=== PATIENT | female | born 1985 | race Caucasian/White ===

== ENCOUNTER 2018-03-11 22:36 | Emergency (ER) | payer OTHER ==
[2018-03-11 23:23] VITALS: TEMP 97.4; BMI 44.7
--- NOTE | 2018-03-12 00:34 | PDOC ---
History of Present Illness - General Chief Complaint: Back Pain Stated Complaint: BACK PAIN Time Seen by Provider: 03/12/18 00:28 - History of Present Illness Initial Comments: 03/12/18 00:34 32 yo F with h/o asthma, HTN, DM, anxiety, depression, who p/w chest pain, and SOB. Patient reports acute onset of worsening, pleuritic, inframmamry chest wall pain, radiating to BL back, and chest, beginning this evening while standing. Also complains of acute SOB, with no identifiable triggers. Pain aggravated with movement. Reports recent URI type illness, with 1 week of non productive cough, congestion, and rhinorrhea. Recently completed 4 day course of antibiotic (unknown) yesterday. Denies sick contacts, or recent travels. Reports 4 days of non bloody, non bilious emesis worse with PO intake. Denies OTC analgesia, or chest wall trauma. Patient denies orthopnea, PND, palpitations, leg swelling/pain, F,C, CP, hemoptysis, SOB, urinary complaints, abdominal pain, diarrhea, constipation, lightheadedness, weakness, sensory changes. PMHx: as noted above ROS: as noted SHx: Tobacco cessation x 1 year ago following 1 ppd x 2 years, Denies IVDA. FHx: No h/o sudden cardiac . Allergies:NKDA Past History - Past Medical History Allergies/Adverse Reactions: Allergies Allergy/AdvReac Type Severity Reaction Status Date / Time No Known Allergies Allergy Verified 03/11/18 23:17 Home Medications: Ambulatory Orders Insulin Regular [NOVOLIN R VIAL *IVPUSH / ER / ICU Only*] 28 units SQ TID Cardiac Disorders: No CVA: No COPD: No CHF: No DVT: No Diabetes: Yes (IDDM) HTN: Yes - Surgical History Cardiac Surgery: No Cholecystectomy: No Gastric Stapling: No GI Surgery: No - Suicide/Smoking/Psychosocial Hx Smoking History: Never smoked Substance Use Type: None Review of Systems - Review of Systems Comments:: 03/12/18 00:34 GENERAL/CONSTITUTIONAL: No fever or chills. No weakness. HEAD, EYES, EARS, NOSE AND THROAT: No change in vision. No ear pain or discharge. No sore throat. CARDIOVASCULAR + chest pain and shortness of breath RESPIRATORY: + cough. No wheezing, or hemoptysis. GASTROINTESTINAL:+ nausea and vomiting. No diarrhea or constipation. GENITOURINARY: No dysuria, frequency, or change in urination. MUSCULOSKELETAL: No joint or muscle swelling or pain. No neck or back pain. SKIN: No rash NEUROLOGIC: No headache, vertigo, loss of consciousness, or change in strength/ sensation. ENDOCRINE: No increased thirst. No abnormal weight change HEMATOLOGIC/LYMPHATIC: No anemia, easy bleeding, or history of blood clots. ALLERGIC/IMMUNOLOGIC: No hives or skin allergy. *Physical Exam - Vital Signs Last Vital Signs Temp Pulse Resp BP Pulse Ox 97.4 F L 80 20 158/108 H 99 03/11/18 23:20 03/11/18 23:20 03/11/18 23:20 03/11/18 23:20 03/11/18 23:20 - Physical Exam Comments: 03/12/18 00:34 GENERAL: Awake, alert, and fully oriented, in no acute distress HEAD: No signs of trauma, normocephalic, atraumatic EYES: PERRLA, EOMI, sclera anicteric, conjunctiva clear ENT: Hearing grossly normal, nares patent, oropharynx clear without exudates. Moist mucosa NECK: Normal ROM, supple, no lymphadenopathy, JVD, or masses LUNGS: No distress, speaks full sentences, clear to auscultation bilaterally HEART: Regular rate and rhythm, normal S1 and S2, no murmurs, rubs or gallops, peripheral pulses normal and equal bilaterally. CHEST: + Ant, and post chest wall ttp. No bony deformity. ABDOMEN: + Epigastria ttp. Soft, nontender, normoactive bowel sounds. No guarding, no rebound. No masses. Neg CVA ttp. EXTREMITIES : Normal inspection, Normal range of motion, no edema. No clubbing or cyanosis. SKIN: Warm, Dry, normal turgor, no rashes or lesions noted ED Treatment Course - LABORATORY CBC & Chemistry Diagram: 03/12/18 00:55 03/12/18 00:55 Medical Decision Making - Medical Decision Making 03/12/18 00:53 32 yo F with h/o asthma, HTN, DM, anxiety, depression, who p/w chest pain, and SOB. BP 158/18, vitals otherwise wnl. + BL ant and post chest wall ttp. Lungs CTA. Cardiac exam unremarkable. ACS/PR r/o. R/o PNA. PERC NEG PE. Low suspicion AAA, Ao dissection, pericarditis. Will consider gastritis, biliary disease, pancreatitis, costochondritis, anxiety related disorder. ED Course: CBC,CMP, Lipase, Cardiac Pr, HCG, Influenza CXR, EKG Zofran, Tylenol, NS 03/12/18 01:19 EKG: NSR with absent TRENA, STD. Normal interval duration and axis. 03/12/18 03:00 WBC: 10.9 Lipase: 472 Glu: 375 CMP: Unremarkable HCG: Neg 03/12/18 03:02 CXR: Unremarkable on intial preliminary read in ED. 03/12/18 03:22 CT AP W/CON 03/12/18 05:17 CT AP: Unremarkable Patient pain improved. Stable for d/c with return precautions. Advised to f/u with PMD. *DC/Admit/Observation/Transfer Diagnosis at time of Disposition: Back pain Qualifiers: Back pain location: thoracic back pain Chronicity: acute Back pain laterality: bilateral Qualified Code(s): M54.6 - Pain in thoracic spine Chest pain Qualifiers: Chest pain type: chest pain on breathing Qualified Code(s): R07.1 - Chest pain on breathing - Discharge Dispostion Condition at time of disposition: Stable Decision to Admit order: No - Referrals Referrals: Simon Shepard MD [Primary Care Provider] - - Patient Instructions Printed Discharge Instructions: DI for Thoracic Back Pain Additional Instructions: Please return to the emergency department with any new or worsening symptoms or concerns. Please follow up with your primary care physician within 72 hours. - Post Discharge Activity - Attestations Physician Attestion: 03/12/18 00:34 I attest to the information provided in this note.
[2018-03-12] MEDS ORDERED: ONDANSETRON 4 MG/2 ML VIAL IVPB ONE (00:43)
[2018-03-12] MEDS ORDERED: ALBUTEROL SO4 2.5/IPRATROPIUM 0.5 INH SOL 3 ML VIAL.NEB. NEB ONE ×2 (00:43→00:49)
[2018-03-12] MEDS ORDERED: ACETAMINOPHEN 1000 MG/100 ML VIAL (NON FORMULARY) IVPB ONE (00:43)
[2018-03-12] MEDS ORDERED: SODIUM CHLORIDE 1,000 ML IV STA (00:43)
[2018-03-12] MEDS ORDERED: ACETAMINOPHEN INJECTION 100 ML IVPB ONE (00:49)
[2018-03-12] MEDS ORDERED: ONDANSETRON 4 MG/2 ML VIAL ONE (00:49)
--- NOTE | 2018-03-12 01:46 | PDOC ---
Attending Attestation - HPI HPI: 03/12/18 03:16 The patient is a 32 year old female with a significant PMH of asthma, HTN, DM, anxiety, depression, who presents to the ED with chest pain, and SOB since earlier this evening. The patient reports that she had a sudden acute onset of chest pain that radiates to her back while she was standing up today. the patient also reports some associated shortness of breath with her chest pain. she states that her chest pain is worsened with movement. She reports recent URI type illness, with 1 week of non productive cough, congestion, and rhinorrhea. she states that she recently completed 4 day course of antibiotic ( unknown) yesterday. Denies sick contacts, or recent travels. Reports 4 days of non bloody, non bilious emesis worse with PO intake. Denies OTC analgesia, or chest wall trauma. the patient denies any other symptoms or complaints. Documentation prepared by Obie Tyler, acting as medical safety director for Leila Walton MD. <Obie Tyler - Last Filed: 03/12/18 03:16> - Resident Resident Name: Rafael Zurita - ED Attending Attestation I have performed the following: I have examined & evaluated the patient, The case was reviewed & discussed with the resident, I agree w/resident's findings & plan, Exceptions are as noted - Physicial Exam PE: 03/13/18 05:44 GENERAL: Awake, alert, and fully oriented, in no acute distress LUNGS: No distress, speaks full sentences, clear to auscultation bilaterally HEART: Regular rate and rhythm, normal S1 and S2, no murmurs, rubs or gallops, peripheral pulses normal and equal bilaterally. CHEST: + Ant, and post chest wall ttp. No bony deformity. ABDOMEN: + Epigastria ttp. Soft, No guarding, no rebound. No masses. Neg CVA ttp. EXTREMITIES : Normal inspection, Normal range of motion, no edema. SKIN: Warm, Dry, normal turgor, no rashes or lesions noted - Medical Decision Making 03/13/18 05:44 Laboratory Tests 03/12/18 03/12/18 03/12/18 00:55 00:55 00:55 WBC 10.9 H Hgb 9.7 L Hct 32.2 L Plt Count 363 BUN 14 Creatinine 1.1 Random Glucose 325 H* Creatine Kinase 63 Troponin I < 0.02 Lipase Urine HCG, Qual 03/12/18 03/12/18 01:00 02:28 WBC Hgb Hct Plt Count BUN Creatinine Random Glucose Creatine Kinase Troponin I Lipase 472 H Urine HCG, Qual Negative CT negative No bowel obstruction or inflammation. Negative for diverticulitis or colitis. Normal appendix. Small hiatal hernia. Normal left kidney and ureter. Scarring and atrophy of the right kidney. No acute abnormalities of the right kidney or urinary tract. No urinary tract obstruction. Normal urinary bladder. Normal liver. Normal spleen. Normal pancreas Normal adrenal glands. Contracted gallbladder. 1.8 cm right corpus luteum cyst. No fringe peritoneal air or free fluid. Osseous structures are intact Clinical Impression: abdominal pain, initial presentation <Leila Walton - Last Filed: 03/13/18 05:46>
[2018-03-12 01:54] LABS: BASO % 0.8 % (0-2.0); EOS % 4.6 % (0-4.5); HEMATOCRIT 32.2 % (32.4-45.2); HEMOGLOBIN 9.7 GM/dL (10.7-15.3); LYMPH % 34.6 % (8-40); MCH 20.7 pg (25.7-33.7); MCHC 30.1 g/dl (32.0-36.0); MEAN CELL VOLUME 68.8 fl (80-96); MEAN PLT VOLUME 7.4 fl (7.5-11.1); MONO % 4.2 % (3.8-10.2); NEUT % 55.8 % (42.8-82.8); PLATELET COUNT 363 K/MM3 (134-434); RBC 4.68 M/mm3 (3.60-5.2); WHITE BLOOD COUNT 10.9 K/mm3 (4.0-10.0)
[2018-03-12 02:54] LABS: ALBUMIN 3.2 g/dl (3.4-5.0); ALK PHOS 102 U/L (45-117); ANION GAP 8 MMOL/L (8-16); BILIRUBIN,TOTAL 0.2 mg/dL (0.2-1); BLOOD UREA NITROGEN 14 mg/dL (7-18); CALCIUM 8.9 mg/dL (8.5-10.1); CHLORIDE 102 mmol/L (98-107); CO2 27 mmol/L (21-32); CREATININE 1.1 mg/dL (0.55-1.3); SGOT/AST 15 U/L (15-37); SGPT/ALT 27 U/L (13-61); SODIUM 137 mmol/L (136-145)
[2018-03-12 03:13] LABS: GLUCOSE,RANDOM 325 mg/dL (74-106)
[2018-03-12] MEDS ORDERED: FAMOTIDINE 20 MG/50 ML IVPB 20 MG/50 ML MG IVPB ONE ×2 (03:16→03:59)
[2018-03-12] MEDS ORDERED: MAG HYDROX/AL HYDROX/SIMETH 30 ML UNIT-DOSE CUP PO ONE (03:16)
[2018-03-12] MEDS ORDERED: KETOROLAC TROMETHAMINE 30 MG/1 ML VIAL IVPUSH ONE (03:29)
[2018-03-12 03:58] LABS: ANISOCYTOSIS 2+; MACROCYTOSIS 1+; PLATELET ESTIMATE NORMAL
[2018-03-12] MEDS ORDERED: MAG HYDROX/AL HYDROX/SIMETH 30 ML UNIT-DOSE CUP ONE (03:59)
[2018-03-12] MEDS ORDERED: KETOROLAC TROMETHAMINE 30 MG/1 ML VIAL ONE (03:59)
[2018-03-12 06:14] VITALS: BP 135/76; PULSE 81
--- NOTE | 2018-03-12 10:46 | EKG ---
Test Reason : Blood Pressure : / mmHG Vent. Rate : 068 BPM Atrial Rate : 068 BPM P-R Int : 136 ms QRS Dur : 076 ms QT Int : 432 ms P-R-T Axes : 040 056 048 degrees QTc Int : 459 ms SINUS RHYTHM WITH MARKED SINUS ARRHYTHMIA OTHERWISE NORMAL ECG NO PREVIOUS ECGS AVAILABLE Confirmed by KHOI MELCHOR, SYBIL ([id number]) on 03/12/2018 10:46:41 AM Referred By: Confirmed By:SYBIL WESTFALL MD
== END 2018-03-12 06:13 | disposition home or self-care (01) ==
LOC: JER 22:36
DX: R07.89 Other chest pain (principal); M54.6 Pain in thoracic spine; I10 Essential (primary) hypertension; E10.9 Type 1 diabetes mellitus without complications; Z79.4 Long term (current) use of insulin; F41.9 Anxiety disorder, unspecified; F32.9 Major depressive disorder, single episode, unspecified
CPT/HCPCS: 36415; 71045-TC-FY; 74177-TC; 80053; 82550; 83690; 84484; 84703; 85025; 93005; 93010; 99282-25; J0131; J7030; J7620

== ENCOUNTER 2018-03-12 16:46 | Inpatient (IN) | payer OTHER ==
[2018-03-12] MEDS ORDERED: ONDANSETRON 4 MG/2 ML VIAL IVPUSH ONE ×2 (16:57→17:45)
--- NOTE | 2018-03-12 17:00 | PDOC ---
Rapid Medical Evaluation Chief Complaint: Pain, Acute Time Seen by Provider: 03/12/18 16:55 Medical Evaluation: Allergies Allergy/AdvReac Type Severity Reaction Status Date / Time No Known Allergies Allergy Verified 03/12/18 16:55 03/12/18 16:58 Pt c/o: rt back and ruq pain x 1 hour, + n/v, had ct yesterday (unable to completely visualize gallbladder) lipase 474, Pt on brief exam: rt cva, + ruq pain, tachy Pt ordered for: labs, lipase, ua, gallbladder u/s pt to proceed to the ED: Discharge Disposition - Diagnosis Abdominal pain - Referrals - Patient Instructions - Post Discharge Activity
--- NOTE | 2018-03-12 17:36 | PDOC ---
History of Present Illness - General History Source: Patient Exam Limitations: No Limitations - History of Present Illness Initial Comments: 03/12/18 17:53 The patient is a 32 year old female, with a significant past medical history of diabetes and HTN, who presents to the ED complaining of right mid back back for the past 24 hours, as well as nausea and vomit. She reports 4 episodes of emesis , nonbloody and nonbilious. She describes her pain is severe and constant, radiating from her back to her abdomen and chest. She notes that movement and deep breaths exacerbates her pain. She notes that she has been feeling short of breath due to the pain. She denies taking anything for the pain while at home. The patient was in the ED last night for the same pain, was given pain medication and a CT Scan abdomen/pelvis was done that was within normal limits except for a cyst on the right ovary. She was discharged after improvement of symptoms. The patient denies chest pain, headache and dizziness. Denies fever, chills, diarrhea or constipation. Denies dysuria, frequency, urgency and hematuria. LMP: 02/25/2018 Allergies: none Past surgical history: None repoted Social History: No alcohol, tobacco or drug use reported <Ernesto Hsieh - Last Filed: 03/12/18 18:46> <John Zarate - Last Filed: 03/12/18 23:14> - General Chief Complaint: Pain, Acute Stated Complaint: PAIN, ACUTE Time Seen by Provider: 03/12/18 16:55 Past History <Ernesto Hsieh - Last Filed: 03/12/18 18:46> - Past Medical History Cardiac Disorders: No CVA: No COPD: No CHF: No DVT: No Diabetes: Yes (IDDM) HTN: Yes - Surgical History Cardiac Surgery: No Cholecystectomy: No Gastric Stapling: No GI Surgery: No - Suicide/Smoking/Psychosocial Hx Smoking History: Unknown if ever smoked Substance Use Type: None <John Zarate - Last Filed: 03/12/18 23:14> - Past Medical History Allergies/Adverse Reactions: Allergies Allergy/AdvReac Type Severity Reaction Status Date / Time No Known Allergies Allergy Verified 03/12/18 16:55 Home Medications: Ambulatory Orders Insulin Glargine,Hum.rec.anlog [Katherine Ricks U-100] 28 unit SQ ASDIR Review of Systems - Review of Systems Able to Perform ROS?: Yes Comments:: 03/12/18 17:53 CONSTITUTIONAL: No fever, no chills, no fatigue EYES: No visual changes ENT: No ear pain, no sore throat CARDIOVASCULAR: No chest pain, no palpitations RESPIRATORY: (+) Shortness of breath. No cough GI: (+) Nausea, vomit. No constipation, no diarrhea GENITOURINARY: No dysuria, no frequency, no hematuria MUSKULOSKELETAL: (+) Right mid back pain. No joint pain, no myalgias SKIN: No rash NEURO: No headache <Ernesto Hsieh - Last Filed: 03/12/18 18:46> *Physical Exam - Vital Signs Last Vital Signs Temp Pulse Resp BP Pulse Ox 97.7 F 105 H 22 H 132/99 100 03/12/18 17:00 03/12/18 17:00 03/12/18 17:00 03/12/18 17:00 03/12/18 17:00 - Physical Exam Comments: 03/12/18 17:54 CONSTITUTIONAL: Well-appearing; (+) Morbidly Obese; in no apparent distress HEAD: Normocephalic; atraumatic EYES: PERRL; EOM intact ENMT: External appears normal; normal oropharynx NECK: Supple; non-tender; no cervical lymphadenopathy CARD: Normal S1, S2; no murmurs, rubs, or gallops RESP: Normal chest excursion with respiration; breath sounds clear and equal bilaterally; no wheezes, rhonchi, or rales ABD: (+) Epigastric tenderness, no rebound or guarding. Soft, non-distended; no palpable organomegaly, no palpable hernias BACK: (+) Right scapula tenderness. EXT: Normal ROM in all four extremities; non-tender to palpation; distal pulses intact SKIN: Warm, dry, no rash NEURO: No focal neurological deficiencies. <Ernesto Hsieh - Last Filed: 03/12/18 18:46> - Vital Signs Last Vital Signs Temp Pulse Resp BP Pulse Ox 97.7 F 105 H 22 H 132/99 100 03/12/18 17:00 03/12/18 17:00 03/12/18 17:00 03/12/18 17:00 03/12/18 17:00 <John Zarate - Last Filed: 03/12/18 23:14> ED Treatment Course - LABORATORY CBC & Chemistry Diagram: 03/12/18 17:47 03/12/18 17:47 - Medications Given in the ED: ED Medications Discontinued Medications Generic Name Dose Route Start Last Admin Trade Name Herman PRN Reason Stop Dose Admin Ketorolac Tromethamine 30 mg 03/12/18 17:45 03/12/18 17:51 Toradol Injection - IVPUSH 03/12/18 17:46 30 mg ONCE ONE Administration Ondansetron HCl 4 mg 03/12/18 16:57 03/12/18 17:51 Zofran Injection IVPUSH 03/12/18 16:58 4 mg ONCE ONE Administration Ondansetron HCl 4 mg 03/12/18 17:45 03/12/18 17:51 Zofran Injection IVPUSH 03/12/18 17:46 Not Given ONCE ONE <Ernesto Hsieh - Last Filed: 03/12/18 18:46> - LABORATORY CBC & Chemistry Diagram: 03/12/18 17:47 03/12/18 17:47 <John Zarate - Last Filed: 03/12/18 23:14> Medical Decision Making - Medical Decision Making 03/12/18 21:20 Patient is a morbidly obese 32-year-old female with history of insulin- dependent diabetes who presents with recurrent epigastric pain associated with nausea and several episodes of nonbloody nonbilious vomiting and right subscapular pain. In the ER, patient is awake and alert, in mild distress. Patient is afebrile. Repeat CBC is consistent with chronic iron deficiency anemia. CMP reveals significantly elevated lipase when compared to the one previously obtained. Right upper quadrant ultrasound shows fatty liver no evidence of cholelithiasis. D-dimer is negative and PE is highly unlikely. CT that and pelvis performed earlier shows no evidence of acute intra-abdominal pathology. Will hydrate, we'll administer antiemetics and pain meds as needed. Will place in observation for pancreatitis. <John Zarate - Last Filed: 03/12/18 23:14> *DC/Admit/Observation/Transfer - Attestations Scribe Attestion: 03/12/18 17:54 Documentation prepared by Ernesto Hsieh, acting as medical record consultant for John Zarate MD <Ernesto Hsieh - Last Filed: 03/12/18 18:46> - Discharge Dispostion Decision to Admit order: Yes - Attestations Physician Attestion: 03/12/18 21:19 The documentation was prepared by the scribe under my direct supervision. I have reviewed the documentation which correctly represents the findings, medical decision-making and critical action taken by me. <John Zarate - Last Filed: 03/12/18 23:14> Diagnosis at time of Disposition: Pancreatitis, acute Qualifiers: Pancreatitis type: unspecified pancreatitis type Acute pancreatitis complication: unspecified Qualified Code(s): K85.90 - Acute pancreatitis without necrosis or infection, unspecified - Discharge Dispostion Condition at time of disposition: Fair - Referrals Referrals: Simon Shepard MD [Primary Care Provider] - - Patient Instructions - Post Discharge Activity
[2018-03-12] MEDS ORDERED: SODIUM CHLORIDE 1,000 ML IV STA (17:45)
[2018-03-12] MEDS ORDERED: KETOROLAC TROMETHAMINE 30 MG/1 ML VIAL IVPUSH ONE (17:45)
[2018-03-12] MEDS ORDERED: ONDANSETRON 4 MG/2 ML VIAL ONE (17:52)
[2018-03-12] MEDS ORDERED: KETOROLAC TROMETHAMINE 30 MG/1 ML VIAL ONE (17:52)
[2018-03-12 18:03] LABS: BASO % 1.5 % (0-2.0); EOS % 5.1 % (0-4.5); HEMATOCRIT 32.4 % (32.4-45.2); HEMOGLOBIN 9.7 GM/dL (10.7-15.3); LYMPH % 24.9 % (8-40); MCH 20.5 pg (25.7-33.7); MCHC 29.9 g/dl (32.0-36.0); MEAN CELL VOLUME 68.5 fl (80-96); MEAN PLT VOLUME 7.3 fl (7.5-11.1); MONO % 4.3 % (3.8-10.2); NEUT % 64.2 % (42.8-82.8); PLATELET COUNT 354 K/MM3 (134-434); RBC 4.72 M/mm3 (3.60-5.2); RDW 17.9 % (11.6-15.6); WHITE BLOOD COUNT 9.9 K/mm3 (4.0-10.0)
[2018-03-12 18:27] LABS: ALBUMIN 2.9 g/dl (3.4-5.0); ALK PHOS 105 U/L (45-117); ANION GAP 3 MMOL/L (8-16); BILIRUBIN,TOTAL 0.2 mg/dL (0.2-1); BLOOD UREA NITROGEN 12 mg/dL (7-18); CALCIUM 8.8 mg/dL (8.5-10.1); CHLORIDE 106 mmol/L (98-107); CO2 25 mmol/L (21-32); CREATININE 0.9 mg/dL (0.55-1.3); GLUCOSE,RANDOM 249 mg/dL (74-106); LIPASE 1398 U/L (73-393); MAGNESIUM 1.7 mg/dL (1.8-2.4); POTASSIUM 4.2 mmol/L (3.5-5.1); SGOT/AST 12 U/L (15-37); SGPT/ALT 25 U/L (13-61); SODIUM 134 mmol/L (136-145); TOT PROT 6.7 g/dl (6.4-8.2)
[2018-03-12] MEDS ORDERED: LACTATED RINGERS SOLUTION 1,000 ML/1,000 ML INFUS.BAG IV STA (18:36)
[2018-03-12] MEDS ORDERED: MAGNESIUM SULF 50% (8.12 MEQ/2 ML-1 GM VIAL) IVPB ONE (18:42)
[2018-03-12] MEDS ORDERED: MAGNESIUM SULF 50% (8.12 MEQ/2 ML-1 GM VIAL) ONE (18:54)
[2018-03-12 20:45] LABS: URINE APPEARANCE CLEAR; URINE BILIRUBIN NEGATIVE (<2.0 mg/dL); URINE COLOR LTYELLOW; URINE GLUCOSE (UA) 3+ (NEGATIVE); URINE KETONE NEGATIVE (NEGATIVE); URINE LEUK ESTERASE 1+ (NEGATIVE); URINE NITRITE NEGATIVE (NEGATIVE); URINE PROTEIN NEGATIVE (NEGATIVE); URINE UROBILINOGEN NEGATIVE mg/dL (0.2-1.0)
[2018-03-12 20:53] LABS: EPI CELLS RARE /HPF (FEW); URINE MUCUS RARE
--- NOTE | 2018-03-12 23:20 | PN ---
Teaching Attending Note Name of Resident: Ying Khan ATTENDING PHYSICIAN STATEMENT I saw and evaluated the patient. Chart, data, imaging reviewed. I reviewed the resident's note and discussed the case with the resident. I agree with the resident's findings and plan as documented. SUBJECTIVE: 32 year old morbidly obese female, with a significant past medical history of DM , HTN c/o right sided back pain which radiates to right chest for the past 5 days. Associated with nausea and vomiting which is now resolved. No clear causative event. Slight improvement with IV toradol. Was seen in ER yesterday for same complaint. CT of abdomen showed only ruptured right ovarian cyst, and fatty liver. OBJECTIVE No Last Vital Signs Temp Pulse Resp BP Pulse Ox 97.7 F 105 H 22 H 132/99 100 03/12/18 17:00 03/12/18 17:00 03/12/18 17:00 03/12/18 17:00 03/12/18 17:00 gen- morbidly obese heent- atraumatic neck - supple cv -s1+s2+rrr back- right sided perispinal tenderness, diffuse spinal tenderness ext- - 5/5 motor in lower ext, neg babinski b/l, +patellar reflexes b/l, sensation in LE grossly intact b/l Abnormal Lab Results 03/12/18 03/12/18 03/12/18 17:47 17:47 20:00 Hgb 9.7 L MCV 68.5 L MCH 20.5 L MCHC 29.9 L RDW 17.9 H MPV 7.3 L Eosinophils % 5.1 H Sodium 134 L Anion Gap 3 L Random Glucose 249 H Magnesium 1.7 L AST 12 L Albumin 2.9 L Lipase 1398 H Urine Glucose (UA) 3+ H Ur Leukocyte Esterase 1+ H imaging reviewed- CT of abdomen/pelvis, hepatobiliary U/S ASSESSMENT AND PLAN: 32yo woman with right right sided perispinal back pain which is likely muscle spasms vs muscle strain. Pancreatitis structurally normal on CT and no hepatobiliary disease seen. Hypomagnesemia may cause muscle cramping and contribute to pain. Neuro exam was normal and do not suspect any acute neuro emergencies. -observation -ibuprofen 400mg PO q6hrs -flexeril 10mg PO tid -bed rest -heparin sc for dvt ppx -restart home meds
[2018-03-12] MEDS ORDERED: ACETAMINOPHEN 325 MG TABLET (FP) PO PRN (23:56)
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
[2018-03-13] MEDS ORDERED: HEPARIN NA (PORCINE) 5,000 UNITS/ML 1ML VIAL ONE ×2 (00:01→07:01)
[2018-03-13] MEDS: IBUPROFEN 400 MG TABLET (FP) PO SCH ×6 (00:11→23:46)
[2018-03-13] MEDS: HEPARIN NA (PORCINE) 5,000 UNITS/ML 1ML VIAL SQ SCH ×4 (00:11→21:06)
[2018-03-13] MEDS ORDERED: CYCLOBENZAPRINE HCL 10 MG TABLET (FP) ONE ×2 (00:28→07:01)
[2018-03-13] MEDS: CYCLOBENZAPRINE HCL 10 MG TABLET (FP) PO SCH ×4 (00:31→21:06)
[2018-03-13] MEDS ORDERED: IBUPROFEN 400 MG TABLET (FP) PO ONE ×2 (07:01)
[2018-03-13] MEDS: INSULIN SLIDING SCALE (NOVOLOG) 1 VIAL SQ SCH ×4 (08:39→21:09)
[2018-03-13] MEDS ORDERED: INSULIN (NOVOLOG) ASPART 100 UNITS/ML 10ML VIAL ONE ×4 (08:42→18:06)
[2018-03-13 16:07] VITALS: BMI 44.7
[2018-03-13] MEDS ORDERED: FLU VACCINE QUAD 60 MCG/0.5 ML (MDV 18-19) IM ONE (17:30)
[2018-03-14] MEDS: IBUPROFEN 400 MG TABLET (FP) PO SCH ×4 (05:39→23:42)
[2018-03-14] MEDS: HEPARIN NA (PORCINE) 5,000 UNITS/ML 1ML VIAL SQ SCH ×3 (05:39→21:47)
[2018-03-14] MEDS: CYCLOBENZAPRINE HCL 10 MG TABLET (FP) PO SCH ×3 (05:40→21:47)
[2018-03-14] MEDS: INSULIN SLIDING SCALE (NOVOLOG) 1 VIAL SQ SCH ×4 (06:24→21:53)
[2018-03-14] MEDS ORDERED: ONDANSETRON 4 MG/2 ML VIAL IVPUSH PRN (12:38)
[2018-03-14] MEDS ORDERED: FAMOTIDINE 20 MG/50 ML IVPB 20 MG/50 ML MG IVPB ONE (12:45)
[2018-03-14] MEDS ORDERED: KETOROLAC TROMETHAMINE 30 MG/1 ML VIAL IVPUSH ONE (12:45)
[2018-03-14] MEDS ORDERED: KETOROLAC TROMETHAMINE 30 MG/1 ML VIAL IVPUSH PRN (14:30)
--- NOTE | 2018-03-14 14:30 | PN ---
Progress Note, Physician Chief Complaint: AWAKE ALERT CHART REVIEWED PATIENT IS COMFORTABLE WILL START ORAL INTAKE - Current Medication List Current Medications: Active Medications Cyclobenzaprine HCl (Flexeril -) 10 mg PO TID [facility] Last Admin: 03/14/18 13:43 Dose: 10 mg Heparin Sodium (Porcine) (Heparin -) 5,000 unit SQ TID [facility] Last Admin: 03/14/18 13:43 Dose: 5,000 unit Ibuprofen (Motrin -) 400 mg PO Q6HPO [facility] Last Admin: 03/14/18 13:43 Dose: 400 mg Insulin Aspart (Novolog Vial Sliding Scale -) 1 vial SQ ACHS [facility]; Protocol Last Admin: 03/14/18 12:25 Dose: 4 units Ondansetron HCl (Zofran Injection) 8 mg IVPUSH Q6H PRN PRN Reason: NAUSEA - Objective Vital Signs: Vital Signs Temperature 97.2 F L 03/14/18 06:00 Pulse Rate 70 03/14/18 06:00 Respiratory Rate 18 03/14/18 06:00 Blood Pressure 136/87 03/14/18 06:00 O2 Sat by Pulse Oximetry (%) 100 03/13/18 23:00 Constitutional: Yes: Mild Distress Eyes: Yes: WNL HENT: Yes: WNL Neck: Yes: WNL Cardiovascular: Yes: WNL Respiratory: Yes: WNL Gastrointestinal: Yes: Soft, Tenderness Genitourinary: Yes: WNL Musculoskeletal: Yes: WNL Edema: No Peripheral Pulses WNL: Yes Integumentary: Yes: WNL Wound/Incision: Yes: Clean/Dry Neurological: Yes: WNL ...Motor Strength: WNL Psychiatric: Yes: WNL Labs: CBC, BMP 03/12/18 17:47 03/12/18 17:47 Problem List - Problems (1) Pancreatitis, acute Code(s): K85.90 - ACUTE PANCREATITIS WITHOUT NECROSIS OR INFECTION, UNSP Qualifiers: Pancreatitis type: unspecified pancreatitis type Acute pancreatitis complication: unspecified Qualified Code(s): K85.90 - Acute pancreatitis without necrosis or infection, unspecified (2) Back pain Code(s): M54.9 - DORSALGIA, UNSPECIFIED Qualifiers: Back pain location: thoracic back pain Chronicity: acute Back pain laterality: bilateral Qualified Code(s): M54.6 - Pain in thoracic spine Assessment/Plan ADVANCE DIET SLOWLY CHECK LABS IN AM DVT PROPHYLAXIS OOB AARON HAIR IVF PAIN CONTROL TORADOL AND ZOFRAN
[2018-03-14] MEDS: FAMOTIDINE 20 MG/50 ML IVPB 20 MG/50 ML MG IVPB SCH (21:47)
[2018-03-15] MEDS: IBUPROFEN 400 MG TABLET (FP) PO SCH ×2 (06:08→12:13)
[2018-03-15] MEDS: CYCLOBENZAPRINE HCL 10 MG TABLET (FP) PO SCH (06:08)
[2018-03-15] MEDS: HEPARIN NA (PORCINE) 5,000 UNITS/ML 1ML VIAL SQ SCH (06:09)
[2018-03-15] MEDS: INSULIN SLIDING SCALE (NOVOLOG) 1 VIAL SQ SCH ×2 (06:13→12:13)
[2018-03-15 07:06] VITALS: PULSE 81
[2018-03-15 08:43] LABS: HEMATOCRIT 31.1 % (32.4-45.2); HEMOGLOBIN 9.3 GM/dL (10.7-15.3); MCH 20.6 pg (25.7-33.7); MEAN CELL VOLUME 68.8 fl (80-96); MEAN PLT VOLUME 7.4 fl (7.5-11.1); PLATELET COUNT 325 K/MM3 (134-434); RBC 4.52 M/mm3 (3.60-5.2); RDW 17.9 % (11.6-15.6); WHITE BLOOD COUNT 7.4 K/mm3 (4.0-10.0)
[2018-03-15 09:11] LABS: ALBUMIN 2.7 g/dl (3.4-5.0); ALK PHOS 94 U/L (45-117); ANION GAP 9 MMOL/L (8-16); BILIRUBIN,TOTAL 0.2 mg/dL (0.2-1); BLOOD UREA NITROGEN 18 mg/dL (7-18); CHLORIDE 107 mmol/L (98-107); CO2 22 mmol/L (21-32); CREATININE 0.8 mg/dL (0.55-1.3); GLUCOSE,RANDOM 188 mg/dL (74-106); LIPASE 297 U/L (73-393); POTASSIUM 4.5 mmol/L (3.5-5.1); SGOT/AST 21 U/L (15-37); SGPT/ALT 23 U/L (13-61); SODIUM 138 mmol/L (136-145); TOT PROT 6.4 g/dl (6.4-8.2)
--- NOTE | 2018-03-15 10:43 | DS ---
Physical Examination Vital Signs: Vital Signs Temperature 98.2 F 03/15/18 06:00 Pulse Rate 81 03/15/18 06:00 Respiratory Rate 20 03/15/18 06:00 Blood Pressure 126/92 03/15/18 06:00 O2 Sat by Pulse Oximetry (%) 100 03/14/18 23:00 Constitutional: Yes: Mild Distress Eyes: Yes: WNL HENT: Yes: WNL Neck: Yes: WNL Cardiovascular: Yes: WNL Respiratory: Yes: WNL Gastrointestinal: Yes: WNL Renal/: Yes: WNL Musculoskeletal: Yes: Muscle Pain Extremities: Yes: Other Edema: Yes Edema: RLE: 1+ Peripheral Pulses WNL: Yes Integumentary: Yes: WNL Wound/Incision: Yes: Clean/Dry Neurological: Yes: WNL ...Motor Strength: RLE (PAIN,DECREASED ROM) Psychiatric: Yes: WNL Labs: CBC, BMP 03/15/18 07:00 03/15/18 07:00 Discharge Summary Reason For Visit: PANCREATITIS Current Active Problems Pancreatitis, acute (Acute) Procedures: Principal: CT SCAN ABD Other Procedures: DOPPLER RIGHT LEG Hospital Course: ADMITTED ACUTE PANCREATITIS, TREATED WITH IVF, PAIN MEDS, ADVANCED DIET SLOWLY, RIGHT LOWER LEG DVT TO BE RULED OUT, F/U WITH PMD Condition: Fair - Instructions Diet, Activity, Other Instructions: LOW FAT/LOW SALT/ NO ETOH SEE YOUR PMD IN 3-4 DAYS Referrals: Simon Shepard MD [Primary Care Provider] - Disposition: HOME - Home Medications Comprehensive Discharge Medication List: Ambulatory Orders Insulin Glargine,Hum.rec.anlog [Katherine Ricks U-100] 28 unit SQ ASDIR Cyclobenzaprine HCl [Flexeril -] 10 mg PO TID #30 tablet 03/15/18 Ibuprofen [Motrin -] 400 mg PO Q6HPO #30 tablet 03/15/18 Ondansetron Injection [Zofran Injection] 8 mg IVPUSH Q6H PRN #30 vial 03/15/18
[2018-03-15] MEDS: FAMOTIDINE 20 MG/50 ML IVPB 20 MG/50 ML MG IVPB SCH (10:46)
[2018-03-15 15:38] VITALS: BP 133/70; TEMP 98.5
== END 2018-03-15 13:10 | disposition home or self-care (01) | DRG 282 ==
LOC: JER 16:46 → JERBED 23:15 → J8W 03-13 15:18 → OBSVTOIN 03-14 19:53
PROVIDERS: ADMIT Internal Medicine; ATTEND Family Medicine
DX: K85.90 Acute pancreatitis without necrosis or infection, unspecified (principal); E66.01 Morbid (severe) obesity due to excess calories; Z68.41 Body mass index [BMI] 40.0-44.9, adult; I10 Essential (primary) hypertension; E11.9 Type 2 diabetes mellitus without complications; Z79.4 Long term (current) use of insulin; F32.9 Major depressive disorder, single episode, unspecified; F29 Unspecified psychosis not due to a substance or known physiological condition
CPT/HCPCS: 36415; 76705-TC; 80053; 81003; 81015; 82962; 83690; 83735; 85025; 85027; 85379; 90688; 93971-TC; 99284-25; G0008; G0378; J1644; J7030